=== PATIENT | female | born 1960 | race Caucasian/White ===

== ENCOUNTER → 2017-05-25 | Outpatient (REF) | payer BC ==
[2017-05-25 16:29] LABS: ALBUMIN/GLOBULIN RATIO 1.33 (1.00-1.93); ALKALINE PHOSPHATASE 100 U/L (45-117); ALT/SGPT 53 U/L (12-78); ANION GAP 6 MEQ/L (8-16); AST/SGOT 33 U/L (15-37); BILIRUBIN,TOTAL 0.4 MG/DL (0.2-1.0); BLOOD UREA NITROGEN 17 MG/DL (7-18); CALCIUM LEVEL 9.2 MG/DL (8.5-10.1); CARBON DIOXIDE LEVEL 29 MEQ/L (21-32); CHLORIDE LEVEL 106 MEQ/L (98-107); CREATININE FOR GFR 0.81 MG/DL (0.55-1.02); FREE T4 1.08 NG/DL (0.76-1.46); GLOMERULAR FILTRATION RATE > 60.0 (>51); GLUCOSE, FASTING 90 MG/DL (70-105); POTASSIUM SERUM 4.1 MEQ/L (3.5-5.1); SODIUM LEVEL 141 MEQ/L (136-145)
== END ==
LOC: M LABDRAW1 15:38
PROVIDERS: ATTEND Family Medicine
DX: E03.9 Hypothyroidism, unspecified (principal)

== ENCOUNTER → 2017-06-08 | Outpatient (REF) | payer BC | LOC: M SFHCWAGY 09:16 | PROVIDERS: ATTEND Nurse Practitioner Women's Health | DX: Z12.4 Encounter for screening for malignant neoplasm of cervix (principal) ==

== ENCOUNTER → 2017-06-08 | Outpatient (CLI) | payer BC ==
--- NOTE | 2017-06-08 13:08 | REPMRS ---
Patient History The patient states she had a clinical breast exam in 05/2017. Patient is postmenopausal and has history of other cancer at age 44. Family history of prostate cancer in father under age 50 and colorectal cancer in paternal uncle at age 50 or over. Took unspecified hormones for 2 months. Digital Woman Screen Mammo: June 08, 2017 - Exam #: [id number] Bilateral CC and MLO view(s) were taken. Technologist: Cece Sanchez, Technologist Prior study comparison: May 26, 2016, digital woman screen mammo performed at [facility] [employer] [facility]. April 25, 2015, digital woman screen mammo performed at [facility] [employer] [facility]. FINDINGS: There are scattered fibroglandular densities. There has been no change in the appearance of the mammogram from the prior studies. There is a mild amount of residual fibroglandular tissue which is fairly symmetric. There is no interval development of dominant mass, architectural distortion, or clustered microcalcification suggestive of malignancy. ASSESSMENT: BI-RADS/ACR category 1 mammogram. Negative. Recommendation Routine screening mammogram in 1 year (for women over age 40). This mammogram was interpreted with the aid of an FDA-approved computer-aided dectection system. Electronically Signed By: Kalen Diana MD 06/08/17 [id number]
== END ==
LOC: M WHC 09:04
PROVIDERS: ATTEND Nurse Practitioner Women's Health
DX: Z12.31 Encounter for screening mammogram for malignant neoplasm of breast (principal)

== ENCOUNTER 2018-05-08 16:35 | Emergency (ER) | payer OTHER, BC ==
[2018-05-08] MEDS: KETOROLAC 30 MG/ML VIAL (J1885) IV (18:02)
[2018-05-08] MEDS: diazePAM 5 MG TAB PO (18:02)
== END 2018-05-08 21:49 | disposition home or self-care (01) ==
LOC: M ED 16:35
DX: Z04.1 Encounter for examination and observation following transport accident (principal); M51.26 Other intervertebral disc displacement, lumbar region; M50.30 Other cervical disc degeneration, unspecified cervical region; M48.062 Spinal stenosis, lumbar region with neurogenic claudication; E03.9 Hypothyroidism, unspecified; Z88.1 Allergy status to other antibiotic agents; Z88.2 Allergy status to sulfonamides
CPT/HCPCS: J1885

== ENCOUNTER → 2018-05-27 | Outpatient (REF) | payer OTHER, BC | LOC: M LAB REF 13:46 | DX: Z01.419 Encounter for gynecological examination (general) (routine) without abnormal findings (principal) ==

== ENCOUNTER → 2018-08-10 | Outpatient (REF) | payer OTHER ==
[2018-08-10 14:56] LABS: PLATELET COUNT, AUTOMATED 249 10^3/uL (150-450)
[2018-08-10 15:01] LABS: INR 0.99; PROTHROMBIN TIME 13.2 SECONDS (12.1-14.4)
[2018-08-10 15:02] LABS: PARTIAL THROMBOPLASTIN TIME 33.2 SECONDS (25.4-37.6)
== END ==
LOC: M LABDRAW1 13:12
DX: Z01.812 Encounter for preprocedural laboratory examination (principal)

== ENCOUNTER → 2019-04-14 | Outpatient (REF) | payer OTHER ==
[2019-04-14 11:26] LABS: PROTHROMBIN TIME 13.3 SECONDS (12.1-14.4)
[2019-04-14 11:27] LABS: PARTIAL THROMBOPLASTIN TIME 32.3 SECONDS (25.4-37.6)
== END ==
LOC: M LABDRAW1 10:41
PROVIDERS: ATTEND Physician Assistant
DX: Z01.812 Encounter for preprocedural laboratory examination (principal)

== ENCOUNTER → 2019-05-18 | Outpatient (REF) | payer OTHER ==
[2019-05-18 12:47] LABS: BASO % 0.3 % (0.0-1.0); EOS # 0.1 10^3/uL (0.0-0.50); EOS % 0.9 % (0.0-3.0); HEMATOCRIT 42.9 % (36.0-47.0); LYMPH # 2.1 10^3/uL (1.5-4.5); LYMPH % 32.9 % (24.0-44.0); MEAN CORPUSCULAR HEMOGLOBIN 31.3 pg (27.0-33.0); MEAN CORPUSCULAR HGB CONC 32.6 g/dl (32.0-36.5); MEAN CORPUSCULAR VOLUME 95.8 fl (80.0-96.0); MONO # 0.5 10^3/uL (0.0-0.8); MONO % 7.6 % (0.0-5.0); NEUTROPHILS # 3.7 10^3/uL (1.8-7.7); PLATELET COUNT, AUTOMATED 224 10^3/uL (150-450); RED BLOOD COUNT 4.48 10^6/uL (4.00-5.40); WHITE BLOOD COUNT 6.4 10^3/uL (4.0-10.0)
[2019-05-18 13:00] LABS: ALT/SGPT 38 U/L (12-78); BILIRUBIN,TOTAL 0.4 MG/DL (0.2-1.0); BLOOD UREA NITROGEN 18 MG/DL (7-18); CALCIUM LEVEL 9.1 MG/DL (8.5-10.1); CARBON DIOXIDE LEVEL 31 MEQ/L (21-32); CHLORIDE LEVEL 104 MEQ/L (98-107); CHOLESTEROL LEVEL 219 MG/DL (<200); CREATININE FOR GFR 0.88 MG/DL (0.55-1.30); FREE T4 1.13 NG/DL (0.76-1.46); GLOMERULAR FILTRATION RATE > 60.0 (>51); GLUCOSE, FASTING 90 MG/DL (70-100); HDL CHOLESTEROL 73 MG/DL (>40); LDL CHOLESTEROL 132 MG/DL (<100); MAGNESIUM LEVEL 2.7 MG/DL (1.8-2.4); NON-HDL-C 146 MG/DL; POTASSIUM SERUM 3.9 MEQ/L (3.5-5.1); SODIUM LEVEL 140 MEQ/L (136-145); TOTAL PROTEIN 6.7 GM/DL (6.4-8.2); TRIGLYCERIDES LEVEL 70 MG/DL (<150)
[2019-05-18 13:02] LABS: TOTAL 25(OH) VITAMIN D 40.5 NG/ML (30.0-100.0)
== END ==
LOC: M LABDRAW1 09:09
PROVIDERS: ATTEND Physician Assistant
DX: R25.2 Cramp and spasm (principal)

== ENCOUNTER → 2019-06-17 | Outpatient (REF) | payer OTHER | LOC: M SFHCWAGY 13:20 | PROVIDERS: ATTEND Nurse Practitioner Women's Health | DX: Z12.4 Encounter for screening for malignant neoplasm of cervix (principal) ==

== ENCOUNTER → 2019-06-17 | Outpatient (CLI) | payer OTHER ==
--- NOTE | 2019-06-17 15:13 | REP ---
BILATERAL SCREENING DIGITAL MAMMOGRAM WITH 3D TOMOSYNTHESIS: There are no palpable abnormalities or other breast complaints. The the patient states she had a clinical breast examination June 18, 2019. The Tyrer-Cuzick Score is: 5.0% . Comparison is 04/03/2014. There are scattered areas of fibroglandular density. There is no dominant mass, micro calcific cluster or architectural distortion that would indicate malignancy. There are no additional findings on 3D tomosynthesiss. There is no change from the prior study. Impression: BIRADS/ACR category 1 mammogram. Negative. Recommendation: Routine annual screening mammography. This mammogram was interpreted with the aid of a FDA approved computer-aided detection system. A. Negative mammogram reports should not delay biopsy if a dominant or clinically suspicious mass is present. B. Not all breast cancers are identified by mammography or tomosynthesis. C. Adenosis and dense breasts may obscure an underlying neoplasm. Patient letter M1. Electronically Signed by Kalen Preston MD 06/17/2019 03:03 P
== END ==
LOC: M WHC 12:55
PROVIDERS: ATTEND Nurse Practitioner Women's Health
DX: Z12.31 Encounter for screening mammogram for malignant neoplasm of breast (principal)

== ENCOUNTER → 2019-09-08 | Outpatient (REF) | payer OTHER ==
[2019-09-08 13:26] LABS: BASO % 0.6 % (0.0-1.0); EOS % 0.8 % (0.0-3.0); HEMATOCRIT 44.3 % (36.0-47.0); HEMOGLOBIN 14.6 g/dl (12.0-15.5); LYMPH % 41.9 % (24.0-44.0); MEAN CORPUSCULAR HEMOGLOBIN 30.9 pg (27.0-33.0); MEAN CORPUSCULAR VOLUME 93.7 fl (80.0-96.0); MONO # 0.4 10^3/uL (0.0-0.8); MONO % 8.9 % (0.0-5.0); NEUTROPHILS # 2.3 10^3/uL (1.5-8.5); NEUTROPHILS % 47.6 % (36.0-66.0); PLATELET COUNT, AUTOMATED 248 10^3/uL (150-450); RED BLOOD COUNT 4.73 10^6/uL (4.00-5.40); WHITE BLOOD COUNT 4.9 10^3/uL (4.0-10.0)
[2019-09-08 13:41] LABS: ALBUMIN 4.3 GM/DL (3.2-5.2); ALT/SGPT 43 U/L (12-78); BILIRUBIN,TOTAL 0.8 MG/DL (0.2-1.0); BLOOD UREA NITROGEN 21 MG/DL (7-18); CALCIUM LEVEL 9.5 MG/DL (8.8-10.2); CARBON DIOXIDE LEVEL 31 MEQ/L (21-32); CHLORIDE LEVEL 104 MEQ/L (98-107); CREATININE FOR GFR 0.76 MG/DL (0.55-1.30); FOLATE > 24.0 NG/ML (>5.4); GLOMERULAR FILTRATION RATE > 60.0 (>45); GLUCOSE, FASTING 93 MG/DL (70-100); POTASSIUM SERUM 4.1 MEQ/L (3.5-5.1); RHEUMATOID FACTOR QUANT < 10.0 IU/ML (<15.0); SODIUM LEVEL 140 MEQ/L (136-145); TOTAL PROTEIN 6.9 GM/DL (6.4-8.2); VITAMIN B12 LEVEL 1064 PG/ML (247-911)
[2019-09-08 14:13] LABS: HEMOGLOBIN A1c 5.9 %
[2019-09-08 14:28] LABS: ERYTHROCYTE SEDIMENTATION RATE 3 mm/hr (0-30)
[2019-09-13 11:46] LABS: ALBUMIN 4.75 GM/DL (3.29-5.55); ALBUMIN % 68.8 % (55.8-66.1); ALPHA-1-GLOBULIN % 3.7 % (2.9-4.9); ALPHA-1-GLOBULINS 0.26 GM/DL (0.17-0.41); ALPHA-2-GLOBULINS 0.55 GM/DL (0.42-0.99); BETA-1-GLOBULINS 0.45 GM/DL (0.28-0.60); BETA-1-GLOBULINS % 6.5 % (4.7-7.2); BETA-2-GLOBULINS 0.27 GM/DL (0.19-0.55); BETA-2-GLOBULINS % 3.9 % (3.2-6.5); GAMMA GLOBULIN % 9.1 % (11.1-18.8); GAMMA GLOBULINS 0.63 GM/DL (0.65-1.58)
[2019-09-14 14:07] LABS: ANTI DS-DNA AB <1:10 titer (.); ANTINUCLEAR ANTIBODIES DIRECT Negative (Negative); SJOGREN'S ANTI SS-A <0.2 AI (0.0-0.9); SJOGREN'S ANTI SS-B <0.2 AI (0.0-0.9); VITAMIN B1 LEVEL WHOLE BLOOD 252.2 nmol/L (66.5-200.0); VITAMIN E(ALPHA TOCOPHEROL) 6.5 mg/L (9.0-29.0); VITAMIN E(GAMMA TOCOPHEROL) 0.4 mg/L (0.5-4.9)
== END ==
LOC: M LABNEURO 09:24
PROVIDERS: ATTEND Psychiatry & Neurology Neurology
DX: G31.84 Mild cognitive impairment of uncertain or unknown etiology (principal)

== ENCOUNTER → 2019-11-10 | Outpatient (REF) | payer OTHER ==
[2019-11-10 13:45] LABS: TOTAL PROTEIN,RANDOM URINE < 5.0 MG/DL (0.0-12.0)
== END ==
LOC: M LABDRAW1 11:38
PROVIDERS: ATTEND Psychiatry & Neurology Neurology
DX: Z00.00 Encounter for general adult medical examination without abnormal findings (principal)

== ENCOUNTER → 2020-04-26 | Outpatient (CLI) | payer OTHER ==
[2020-04-26 10:16] LABS: BASO % 0.3 % (0.0-1.0); EOS # 0.1 10^3/uL (0.0-0.5); HEMATOCRIT 41.9 % (36.0-47.0); HEMOGLOBIN 13.6 g/dl (12.0-15.5); LYMPH # 2.5 10^3/uL (1.5-5.0); LYMPH % 42.5 % (24.0-44.0); MEAN CORPUSCULAR HEMOGLOBIN 30.3 pg (27.0-33.0); MEAN CORPUSCULAR HGB CONC 32.5 g/dl (32.0-36.5); MEAN CORPUSCULAR VOLUME 93.3 fl (80.0-96.0); MONO # 0.5 10^3/uL (0.0-0.8); MONO % 9.1 % (0.0-5.0); NEUTROPHILS # 2.7 10^3/uL (1.5-8.5); NEUTROPHILS % 46.9 % (36.0-66.0); PLATELET COUNT, AUTOMATED 239 10^3/uL (150-450); RED BLOOD COUNT 4.49 10^6/uL (4.00-5.40); WHITE BLOOD COUNT 5.8 10^3/uL (4.0-10.0)
[2020-04-26 10:56] LABS: ALT/SGPT 31 U/L (12-78); BILIRUBIN,TOTAL 0.7 MG/DL (0.2-1.0); BLOOD UREA NITROGEN 16 MG/DL (7-18); CALCIUM LEVEL 8.9 MG/DL (8.8-10.2); CARBON DIOXIDE LEVEL 28 MEQ/L (21-32); CHLORIDE LEVEL 106 MEQ/L (98-107); CHOLESTEROL LEVEL 235 MG/DL (<200); CHOLESTEROL RISK RATIO 3.309 (<5); CREATININE FOR GFR 0.74 MG/DL (0.55-1.30); GLOMERULAR FILTRATION RATE > 60.0 (>45); GLUCOSE, FASTING 88 MG/DL (70-100); HDL CHOLESTEROL 71 MG/DL (>40); LDL CHOLESTEROL 148 MG/DL (<100); NON-HDL-C 164 MG/DL; POTASSIUM SERUM 3.9 MEQ/L (3.5-5.1); SODIUM LEVEL 139 MEQ/L (136-145); TOTAL PROTEIN 6.6 GM/DL (6.4-8.2); TRIGLYCERIDES LEVEL 80 MG/DL (<150)
== END ==
LOC: M LAB 09:08
PROVIDERS: ATTEND Family Medicine
DX: Z00.00 Encounter for general adult medical examination without abnormal findings (principal); Z12.9 Encounter for screening for malignant neoplasm, site unspecified

== ENCOUNTER → 2021-01-16 | Outpatient (REF) ==
[2021-01-16 13:01] LABS: COLLAGEN EPINEPHRINE 131 SECONDS (74-162)
== END ==
LOC: M LAB REF 12:39
DX: M51.27 Other intervertebral disc displacement, lumbosacral region (principal)

== ENCOUNTER → 2021-07-24 | Outpatient (CLI) | payer OTHER ==
--- NOTE | 2021-07-24 11:08 | REPMRS ---
Patient History Family history of colorectal cancer at age 50 or over in paternal uncle, prostate cancer under age 50 in father. Took unspecified hormones for 2 months. Patient states no breast complaints today. Patient has signed MRS History Sheet. Digital Woman Screen Mammo: July 24, 2021 - Exam #: [id number] Bilateral CC and MLO view(s) were taken. Technologist: Cece Sanchez, Technologist Prior study comparison: May 18, 2020, bilateral digital mammo screening bilat, performed at [facility]. June 17, 2019, bilateral digital woman screen mammo performed at [facility]. June 10, 2018, bilateral digital mammo screening bilat, performed at [facility]. FINDINGS: There are scattered fibroglandular densities. The Volpara volumetric breast density category is:B. There has been no change in the appearance of the mammogram from the prior studies. There is a mild amount of scattered fibroglandular density which is fairly symmetric. There is no interval development of dominant mass, architectural distortion, or grouped microcalcification suggestive of malignancy. 3-D tomosynthesis shows no additional findings. Assessment: BI-RADS/ACR category 1 mammogram. Negative Mammogram. Recommendation Routine screening mammogram of both breasts in 1 year (for women over age 40). This patient's [facility] Lifetime Breast Cancer Risk is estimated at 4.7 %. This mammogram was interpreted with the aid of an FDA-approved computer-aided dectection system. Electronically Signed By: Micheal Pierce MD 07/24/21 [id number]
--- NOTE | 2021-07-24 11:24 | DEXAMM ---
INDICATION: Z78.0 POSTMENOPAUSAL STATUS. COMPARISON: Comparison study June 10, 2018 and September 20, 2010 TECHNIQUE: Bone density was measured using dual-energy x-ray absorptionmetry (DEXA). FINDINGS: AP SPINE L1-L4 BMD 0.943 g/cm2 Young Adult T-Score -2.0 Age Matched Z-Score -0.7. LT FEMUR, TOTAL BMD 0.728 g/cm2 Young Adult T-Score -2.2 Age Matched Z-Score -1.2. LT NECK BMD 0.682 g/cm2 Young Adult T-Score -2.6 Age Matched Z-Score -1.2. RT FEMUR, TOTAL BMD 0.751 g/cm2 Young Adult T-Score -2.0 Age Matched Z-Score -1.0. RT NECK BMD 0.685 g/cm2 Young Adult T-Score -2.5 Age Matched Z-Score -1.2. IMPRESSION: There is low bone density of the spine. There is osteoporosis of the left hip. There is low bone density of the right hip. The density of the spine has decreased 16.5% since the initial exam on September 20, 2010. The density of the spine decreased 9.7% since most recent exam on June 10, 2018. The density of the left hip has decreased 6.7% since initial exam on September 20, 2010. The density of the left hip has decreased 2.8% since most recent exam on June 10, 2018. The density of the right hip has decreased 4.7% since the initial exam on September 20, 2010. The density of the right hip has increased 0.8% since the most recent exam on June 10, 2018. FOLLOW-UP: Recommendation for the next bone density exam: 2 years. <Electronically signed by Micheal Pierce > 07/24/21 [id number]
== END ==
LOC: M WHC 09:02
PROVIDERS: ATTEND Nurse Practitioner Women's Health
DX: Z12.31 Encounter for screening mammogram for malignant neoplasm of breast (principal); Z78.0 Asymptomatic menopausal state

== ENCOUNTER → 2021-07-24 | Outpatient (REF) | payer OTHER | LOC: M SFHCWAGY 13:08 | PROVIDERS: ATTEND Nurse Practitioner Women's Health | DX: Z12.4 Encounter for screening for malignant neoplasm of cervix (principal); Z01.419 Encounter for gynecological examination (general) (routine) without abnormal findings; Z77.9 Other contact with and (suspected) exposures hazardous to health ==

== ENCOUNTER → 2021-10-08 | Outpatient (CLI) | payer OTHER ==
--- NOTE | 2021-10-08 13:11 | REPVR ---
PROCEDURE INFORMATION: Exam: CT Maxillofacial Without Contrast, Sinus Exam date and time: 10/08/2021 1:02 PM Age: 61 years old Clinical indication: Sinusitis; Chronic TECHNIQUE: Imaging protocol: CT Maxillofacial without contrast. Focus on the sinuses. Radiation optimization: All CT scans at this facility use at least one of these dose optimization techniques: automated exposure control; mA and/or kV adjustment per patient size (includes targeted exams where dose is matched to clinical indication); or iterative reconstruction. COMPARISON: CT Head without contrast 05/08/2018 5:01 PM FINDINGS: Frontal sinuses: Normal. No air-fluid levels. Ethmoid air cells: Normal. No air-fluid levels. Sphenoid sinuses: Normal. No air-fluid levels. Maxillary sinuses: Normal. No air-fluid levels. Ostiomeatal units are patent. Nasal cavity/Septum: Unremarkable. Orbital cavity: Orbits are normal. Globes are unremarkable. Bones/joints: Unremarkable. Soft tissues: Unremarkable. IMPRESSION: No significant sinus mucosal disease. Electronically signed by: Ольга Bocanegra On 10/08/2021 13:10:20 PM
== END ==
LOC: M RAD 12:50
PROVIDERS: ATTEND Family Medicine
DX: J30.2 Other seasonal allergic rhinitis (principal)

== ENCOUNTER → 2022-04-02 | Outpatient (REF) ==
[2022-04-02 13:35] LABS: COLLAGEN EPINEPHRINE 142 SECONDS (74-162)
== END ==
LOC: M LAB REF 13:07
DX: Z00.00 Encounter for general adult medical examination without abnormal findings (principal)

== ENCOUNTER → 2022-06-05 | Outpatient (CLI) | payer OTHER | LOC: M PLAIMG 08:53 | PROVIDERS: ATTEND Nurse Practitioner Family | DX: R05.1 Acute cough (principal) ==

== ENCOUNTER → 2022-07-14 | Outpatient (CLI) | payer OTHER | LOC: M WHC 08:02 | PROVIDERS: ATTEND Family Medicine | DX: Z12.31 Encounter for screening mammogram for malignant neoplasm of breast (principal) ==